=== PATIENT | male | born 1980 | race American Indian/Alaskan Native ===

== ENCOUNTER 2017-10-22 03:38 | Emergency (ER) | payer SELFPAY ==
[2017-10-22] MEDS ORDERED: NACL 0.9% 1000 ML 1,000 ML IV ONE (03:47)
[2017-10-22 04:00] LABS: Basophils # (Auto) 0.1 K/mm3 (0.0-0.1); Basophils % (Auto) 1.9 % (0.0-1.8); Eosinophils # (Auto) 0.3 K/mm3 (0.0-0.4); Eosinophils % (Auto) 3.4 % (0.0-4.3); Hematocrit 44.1 % (35.5-45.6); Hemoglobin 15.2 gm/dl (11.8-15.2); Lymphocytes # (Auto) 2.6 K/mm3 (1.2-5.4); Lymphocytes % (Auto) 34.1 % (13.4-35.0); Mean Corpuscular HGB Conc 35 % (32-34); Mean Corpuscular Hemoglobin 31 pg (28-32); Mean Corpuscular Volume 91 fl (84-94); Monocytes # (Auto) 0.8 K/mm3 (0.0-0.8); Monocytes % (Auto) 10.7 % (0.0-7.3); Platelet Count 334 K/mm3 (140-440); Red Blood Count 4.86 M/mm3 (3.65-5.03); Red Cell Distribution Width 13.2 % (13.2-15.2)
[2017-10-22] MEDS ORDERED: TORADOL IV ONE (04:19)
[2017-10-22] MEDS ORDERED: DILAUDID IV ONE (04:19)
[2017-10-22] MEDS ORDERED: ZOFRAN IV ONE (04:19)
[2017-10-22 04:29] LABS: Alanine Aminotransferase 81 units/L (7-56); Albumin 4.7 g/dL (3.9-5); BUN/Creatinine Ratio 15; Blood Urea Nitrogen 17 mg/dL (9-20); Calcium 10.2 mg/dL (8.4-10.2); Hemolysis Index 6; Lipase 38 units/L (13-60)
--- NOTE | 2017-10-22 04:31 | Emergency Department Report ---
ED Abdominal Pain HPI - General Chief Complaint: Abdominal Pain Stated Complaint: ABDOMINAL PAIN Time Seen by Provider: 10/22/17 04:26 Source: patient, family Mode of arrival: Ambulatory Limitations: No Limitations - History of Present Illness Initial Comments: Healthy 37-year-old male without significant past medical history presents with sudden onset of left flank pain radiating to left lower quadrant at 2 AM. Positive nausea and vomiting. No Previous history of kidney stones. Father did have history of kidney stones. MD Complaint: flank pain -: hour(s) (2) Location: L flank Radiation: LLQ Migration to: LLQ, L flank Severity: severe Severity scale (0 -10): 10 Quality: sharp Consistency: constant Improves With: nothing Worsens With: nothing Associated Symptoms: nausea, vomiting - Related Data Previous Rx's Medication Instructions Recorded Last Taken Type Loratadine 10 mg PO DAILY 30 Days #30 capsule 10/22/17 Unknown Rx Tamsulosin [Flomax] 0.4 mg PO QDAY 5 Days #5 cap 10/22/17 Unknown Rx oxyCODONE /ACETAMINOPHEN [Percocet 1 tab PO Q4HR PRN #15 tab 10/22/17 Unknown Rx 5/325] Allergies Allergy/AdvReac Type Severity Reaction Status Date / Time No Known Allergies Allergy Verified 10/22/17 03:46 ED Review of Systems ROS: Stated complaint: ABDOMINAL PAIN Other details as noted in HPI Comment: All other systems reviewed and negative Constitutional: denies: fever, malaise Respiratory: denies: cough Cardiovascular: denies: chest pain ED Past Medical Hx - Past Medical History Previous Medical History?: No - Surgical History Past Surgical History?: Yes Additional Surgical History: tonsil - Social History Smoking Status: Current Every Day Smoker Substance Use Type: None - Medications Home Medications: Home Medications Medication Instructions Recorded Confirmed Last Taken Type Loratadine 10 mg PO DAILY 30 Days #30 capsule 10/22/17 Unknown Rx Tamsulosin [Flomax] 0.4 mg PO QDAY 5 Days #5 cap 10/22/17 Unknown Rx oxyCODONE /ACETAMINOPHEN [Percocet 1 tab PO Q4HR PRN #15 tab 10/22/17 Unknown Rx 5/325] ED Physical Exam - General Limitations: No Limitations General appearance: alert, in no apparent distress, other (appears in severe pain but nontoxic) - Head Head exam: Present: atraumatic, normocephalic - Eye Eye exam: Present: normal appearance - ENT ENT exam: Present: mucous membranes moist - Neck Neck exam: Present: normal inspection. Absent: tenderness, meningismus - Respiratory Respiratory exam: Present: normal lung sounds bilaterally. Absent: respiratory distress, wheezes, rales, rhonchi - Cardiovascular Cardiovascular Exam: Present: regular rate, normal rhythm, normal heart sounds. Absent: systolic murmur, diastolic murmur, rubs, gallop - GI/Abdominal GI/Abdominal exam: Present: soft, normal bowel sounds. Absent: distended, tenderness, guarding, rebound - Rectal Rectal exam: Present: deferred - Extremities Exam Extremities exam: Present: normal inspection - Back Exam Back exam: Present: normal inspection - Neurological Exam Neurological exam: Present: alert, oriented X3 - Psychiatric Psychiatric exam: Present: normal affect, normal mood - Skin Skin exam: Present: warm, dry, intact, normal color. Absent: rash ED Course Vital Signs 10/22/17 10/22/17 10/22/17 03:36 03:47 04:10 Temperature 98.5 F 98.5 F Pulse Rate 77 73 71 Respiratory 18 18 20 Rate Blood Pressure 121/83 121/83 Blood Pressure 124/76 [Left] O2 Sat by Pulse 98 99 100 Oximetry 10/22/17 10/22/17 04:32 05:02 Temperature Pulse Rate Respiratory 20 16 Rate Blood Pressure Blood Pressure [Left] O2 Sat by Pulse Oximetry ED Medical Decision Making - Lab Data Result diagrams: 10/22/17 03:49 10/22/17 03:49 - Medical Decision Making Mr. Levin presents with left-sided renal colic due to mid ureteral stone 3 mm. He is pain-free after treatment in the ED. I have prescribed Percocet and Flomax. He also desired prescription for nasal congestion due to allergic rhinitis. I provided prescription for loratadine. He was given urine strainer. Referred to urologist as needed. Critical care attestation.: If time is entered above; I have spent that time in minutes in the direct care of this critically ill patient, excluding procedure time. ED Disposition Clinical Impression: Renal colic on left side, Kidney stone on left side Disposition: - TO HOME OR SELFCARE Is pt being admited?: No Does the pt Need Aspirin: No Condition: Stable Instructions: Kidney Stones (ED) Prescriptions: Loratadine 10 mg PO DAILY 30 Days #30 capsule oxyCODONE /ACETAMINOPHEN [Percocet 5/325] 1 tab PO Q4HR PRN #15 tab PRN Reason: Pain , Severe (7-10) Tamsulosin [Flomax] 0.4 mg PO QDAY 5 Days #5 cap Referrals: JODY KOCH MD [Staff Physician] - 3-5 Days Time of Disposition: 05:18
[2017-10-22 04:34] VITALS: BP 124/76
--- NOTE | 2017-10-22 05:13 | Cat Scan Report ---
FINAL REPORT PROCEDURE: CT ABDOMEN PELVIS WO CON TECHNIQUE: Computerized axial tomography of the abdomen and pelvis was performed without intravenous contrast. This study is performed without intravascular contrast material and its sensitivity for abdominal and pelvic pathology, including neoplasms, inflammation, abscess, free fluid, thrombosis, arterial dissection and infarction, is reduced compared with a contrast enhanced study. HISTORY: left flank pain COMPARISON: No prior studies are available for comparison. FINDINGS: Visualized lower thorax: No significant abnormality. Liver: Normal size and attenuation. Spleen: Normal size and attenuation. Gallbladder and biliary system: Normal. Pancreas: Normal. Adrenals: Normal. Kidneys: There is mild left hydronephrosis and hydroureter. There is a 2 millimeter stone in the lower pole of the left kidney. There is a 3 millimeter stone in the midportion of the left ureter.. GI tract: There is no bowel obstruction, colitis or enteritis. The appendix is normal.. Lymph nodes and mesentery: Normal. Vasculature: Normal. Bladder: Normal. Reproductive organs: Normal. Peritoneum: There is no ascites or free air, abscess or adenopathy. Musculoskeletal structures: No significant abnormality. Other: There are bilateral inguinal hernias containing fat only. There is an umbilical hernia containing fat only.. IMPRESSION: There is mild left hydronephrosis and hydroureter. There is a 2 millimeter stone in the lower pole of the left kidney. There is a 3 millimeter stone in the midportion of the left ureter.. There is no bowel obstruction, colitis or enteritis. The appendix is normal.. There is no ascites or free air, abscess or adenopathy. There are bilateral inguinal hernias containing fat only. There is an umbilical hernia containing fat only.. .
== END 2017-10-22 05:45 | disposition home or self-care (01) ==
LOC: ED 03:38
DX: N20.0 Calculus of kidney (principal); F17.200 Nicotine dependence, unspecified, uncomplicated
CPT/HCPCS: 36415; 74176; 80053; 83690; 85025; 96361; 96374; 96375; 99284; J1170; J1885; J2405; J7030